=== PATIENT | female | born 1965 | race African-American/Black ===

== ENCOUNTER 2017-08-12 08:16 | Outpatient (CLI) | payer OTHER ==
--- NOTE | 2017-08-12 11:28 | MMO ---
BILATERAL SCREENING MAMMOGRAM: DATE: 08/12/17 HISTORY: 51-year-old female for screening mammography. COMPARISON: 07/27/15, 12/31/12. FINDINGS: Bilateral MLO and CC views of the breasts show scattered fibroglandular breast tissue. There is no ev idence of suspicious mass, suspicious cluster of microcalcifications, or area of architectural distor tion. Interpretation of this mammogram was performed with the assistance of computer-aided detection. IMPRESSION: BIRADS 1: Negative Annual screening mammography is recommended. POS: [facility]
== END 2017-08-12 08:17 | disposition home or self-care (01) ==
LOC: SCSMAMMO 08:16
PROVIDERS: ATTEND Family Medicine
DX: Z12.31 Encounter for screening mammogram for malignant neoplasm of breast (principal)
CPT/HCPCS: 77067